=== PATIENT | female | born 1955 | race Caucasian/White ===

== ENCOUNTER 2024-01-31 06:59 | Day surgery (SDC) | payer MEDICAID ==
[2024-01-31] MEDS: Sodium Chloride 0.9% 10 ML Syringe FLUSH PRN (07:16)
== END 2024-01-31 09:00 | disposition home or self-care (01) ==
LOC: JP.SDS 06:59
PROVIDERS: ATTEND Ophthalmology
DX: E11.36 Type 2 diabetes mellitus with diabetic cataract (principal); H25.12 Age-related nuclear cataract, left eye
CPT/HCPCS: 66984; 82947; J3490; V2632; 00142-QZ

== ENCOUNTER 2024-02-14 07:19 | Day surgery (SDC) | payer MEDICAID ==
[2024-02-14] MEDS: Sodium Chloride 0.9% 10 ML Syringe FLUSH ONE (07:53)
== END 2024-02-14 09:11 | disposition home or self-care (01) ==
LOC: JP.SDS 07:19
PROVIDERS: ATTEND Ophthalmology
DX: H25.11 Age-related nuclear cataract, right eye (principal)
CPT/HCPCS: 66984; J3490; V2632